=== PATIENT | female | born 2000 | race Caucasian/White ===

== ENCOUNTER 2023-04-15 14:58 | Outpatient (AMB) | payer BC, SELFPAY ==
--- NOTE | 2023-04-15 15:02 | A.OFFVIS_ITS ---
Intake Vital Signs 04/15/23 15:08 Height 59 ft Weight 261 lb BMI 0.4 BP 136/88 Blood Pressure Location Lt brachial Position Sitting Respiration 18 Pulse 100 Pulse Source Pulse Oximeter Pulse Oximetry (%) 98 Oxygen Delivery Method Room Air Intake Visit Reasons: Chronic Myofascial Pain/confirmed Intake Note: patient comes in for initial visit was referred by pcp. She reports pain level on 07/13. Allergies No Known Allergies Allergy (Verified 04/15/23 15:03) HPI HPI Comments History of Present Illness Details Amira is very pleasant 22 years old female who presents herself today in my office with complains on multiple pain generators but most significant are TMJ pathology, cervicalgia service pain syndrome as well as pain in bilateral fe et secondary to plantar fasciitis. For her shoulder pain she is in observation with primary care physician she receives gabapentin 100 mg t.i.d. to help her pain. For pain in the feet she is under care with tile roofer. She has a dentist and ENT surgeon who is attending her in her home town of [place]. She reports that she cannot sleep normally she can not do activities of daily living she can take care of herself she cannot function normally. 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 Severe temperature variation such is heat and cold applications aggravate her pain. Topical medications and oral medications help her pain moderately. She was in the past not diagnosed with Eleonora-Danlos syndrome. 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 She reports her pain as pulsing, throbbing, pounding, pinching, cramping, crushing, dull, hurting, heavy,. She was engaged in physical therapy and reported moderate improvement of her pain she was trying to do acupuncture to help her pain she had x-rays on bilateral feet demonstrating spurs and plantar fasciitis. Her past medical history significant for irritable bowel syndrome and intestinal bacterial overgrowth, past surgical history significant for him in ectomy and plan ideal cyst removal. Social history she is working part-time and full-time student, she denies smoking cigarettes denies drinking alcohol drinks 1 cup of coffee daily and she takes to joints of cannabis a month. Review of Systems Const Reports body aches, Reports fatigue, Denies weight gain and Denies weight loss Eyes Denies blurry vision ENT Reports Normal hearing present, Reports neck pain and Denies sore throat Card Denies dyspnea Resp Denies cough and Denies dyspnea GI Denies constipation and Reports diarrhea Denies urinary frequency and Denies dysuria Musc Reports arthralgias, Reports neck pain, Denies numbness, Reports tingling and Reports other (Joints hypermobility) Neuro Reports Normal hearing present, Denies Abnormal speech present, Denies confusion, Denies numbness, Denies Sensory deficit (Neuro), Reports tingling and Denies tremor(s) Psych Reports abnormal sleep pattern, Denies confusion and Denies depression Endo Reports fatigue Physical Exam Vital Signs: Last Vital Signs Pulse 100 04/15/23 15:08 Resp 18 04/15/23 15:08 BP 136/88 04/15/23 15:08 Pulse Ox 98 04/15/23 15:08 Oxygen Delivery Method Room Air 04/15/23 15:08 BMI result Body Mass Index 0.4 Const General: no acute distress; No confusion Nutritional Appearance: obese morbidly obese Orientation/consciousness: patient oriented x3 and No confusion Eyes General: appearance normal, both eyes and all related structures Pupils: Equal, round and reactive pupils present EOM: EOMs intact bilaterally Neck Neck: Yes full ROM Chest Chest palpation & inspection: normal inspection of the chest Resp Effort & Inspection: normal respiratory effort, able to speak in complete sentences, normal respiratory pattern, no audible wheezes and no cough Cardio Jugular venous distension: no JVD GI Inspection: Yes normal to inspection Neuro General: patient oriented x3, gait normal and No confusion Cranial nerves: Yes CN's II-XII intact bilaterally, Yes Equal, round and reactive pupils present, Yes Normal hearing present and Yes Ability to bilaterally elevate shoulders present Speech: No Abnormal speech present Gait exam (Neuro): Normal gait present Motor exam (neuro): 5/5 motor strength present throughout Sensory Exam: No Sensory deficit (Neuro) Extrem General: No pedal edema Psych Speech and movement: Normal speech and movement present Affect: normal affect Attitude: cooperative Thought process: Normal thought process present Thought content: Normal thought content present Insight: Good insight present (Psych) Judgement: Good judgement present (Psych) Assessment & Plan Assessment & Plan (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 She has 22 years old and her pain may be unbearable and severe. I will increase her gabapentin to 300 mg t.i.d. since this might be good pain alleviation for her. I also gave her brochure spinal cord stimulator [employer] where I can place to electrodes in her neck and to electrodes in her lower thoracic spine to alleviate her pain in bilateral feet as well as pain from cervicalgia. If she agrees on such a measure to treat her pain I will send her to psychological evaluation. 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
[2023-04-15 15:08] VITALS: BP 136/88; PULSE 100; RESP 18; O2SAT 98
== END 2023-04-15 15:23 | disposition home or self-care (01) ==
PROVIDERS: PCP Pediatrics; Referring Provider Pediatrics; Visit Provider Anesthesiology
DX: Q79.60 Ehlers-Danlos syndrome, unspecified (principal); M54.2 Cervicalgia; M72.2 Plantar fascial fibromatosis; G89.4 Chronic pain syndrome
CPT/HCPCS: 99203

== ENCOUNTER → 2023-04-15 14:58 | Outpatient (BNVA) | payer BC, SELFPAY | PROVIDERS: PCP Pediatrics; Referring Provider Pediatrics; Visit Provider Anesthesiology ==